=== PATIENT | male | born 1975 | race Caucasian/White ===

== ENCOUNTER 2021-11-08 07:55 | Outpatient (REF) | payer BC, SELFPAY ==
[2021-11-10 09:36] LABS: Lyme Blot 7.46 index
[2021-11-11 09:20] LABS: 18 KD (IgG) Band NON-REACTIVE; 23 KD (IgG) Band NON-REACTIVE; 23 KD (IgM) Band REACTIVE; 28 KD (IgG) Band NON-REACTIVE; 30 KD (IgG) Band NON-REACTIVE; 39 KD (IgM) Band NON-REACTIVE; 39KD (IgG) Band NON-REACTIVE; 41 KD (IgM) Band REACTIVE; 41KD (IgG) Band REACTIVE; 45 KD (IgG) Band NON-REACTIVE; 58 KD (IgG) Band NON-REACTIVE; 66 KD (IgG) Band NON-REACTIVE; 93 KD (IgG) Band NON-REACTIVE; Lyme IgG Blot Interp NEGATIVE (NEGATIVE); Lyme IgM Blot Interp POSITIVE (NEGATIVE)
[2021-11-11 09:24] LABS: Lyme Abs Screen POSITIVE
== END 2021-11-08 07:56 | disposition home or self-care (01) ==
LOC: HO.HMGCLDS 07:55
PROVIDERS: Visit Provider Internal Medicine
DX: R21 Rash and other nonspecific skin eruption (principal)
CPT/HCPCS: 36415; 86617; 86618

== ENCOUNTER 2025-02-19 07:40 | Outpatient (AMB) | payer BC, SELFPAY ==
--- NOTE | 2025-02-19 07:42 | AM.OFFWIN_ITS ---
Intake Vital Signs 02/19/25 07:44 Height 5 ft 10.5 in Weight 200 lb BMI 28.3 BP 94/64 Blood Pressure Location Lt brachial Position Sitting Respiration 16 Pulse 62 Pulse Source Pulse Oximeter Temp 97.7 F Temp Source Oral Pulse Oximetry (%) 97 Oxygen Delivery Method Room Air Intake Visit Reasons: ep tick bite Intake Note: Pt is here today c/o tick bite Rt ankle noticed this morning Allergies No Known Allergies Allergy (Verified 02/19/25 07:43) HPI HPI Comments History of Present Illness Details History - The patient is a 49-year-old male pres enting with a tick bite. - The tick bite was noticed this morning , although the patient suspects it occurred yesterday. - The patient removed the tick himself a nd brought it to the visit. - There is a history of Lyme disease, pr eviously confirmed by a positive blood test, for which the patient received a 21-day course of antibiotics. - The patient recalls a previous episode where a red bullseye rash appeared, leading to the diagnosis of Lyme disease. - The patient was hit by a baseball last Sunday, resulting in bruising above the site of the tick bite. - He states that he has redness around t he bite. - He has no joint pain, fever, chills, d ischarge, bleeding, redness, rashes, or warmth. Physical Exam General: Cooperative, healthy appearing, comfortable, no acute distress and well developed Respiratory: Normal respiratory effort and able to speak in complete sentences. Cardiac: RRR, no m/r/g noted. Skin: Small round erythematous flat open area noted on the right anterior lower leg. Dry, no discharge noted. Patient was informed and verbally consented to the use of an ambient scribe for clinic note documentation during this visit. Review of Systems Const All systems reviewed & are unremarkable except as noted in HPI and below Physical Exam Vital Signs: Last Vital Signs Temp 97.7 F 02/19/25 07:44 Pulse 62 02/19/25 07:44 Resp 16 02/19/25 07:44 BP 94/64 02/19/25 07:44 Pulse Ox 97 02/19/25 07:44 Oxygen Delivery Method Room Air 02/19/25 07:44 BMI result Body Mass Index 28.3 Assessment & Plan Assessment & Plan (1) Tick bite: Code(s): W57.XXXA - Bitten or stung by nonvenomous insect and other nonvenomous arthropods, initial encounter Qualifiers: Encounter type: initial encounter Site of tick bite: lower leg Laterality: right Qualified Code(s): S80.861A - Insect bite (nonvenomous), right lower leg, initial encounter; W57.XXXA - Bitten or stung by nonvenomous insect and other nonvenomous arthropods, initial encounter Plan Most likely a tick bite witin the last 24 hrs and removed by the pt plan - keep area clean and dry - bactroban ointment to the area TID - will order labs - Initiate doxycycline 200 mg as a single dose for prophylaxis against Lyme disease due to the recent tick bite. - Monitor for signs of infection, including joint pain, fevers, chills, and body aches. - Consider Lyme disease testing, although results may not be positive due to the short duration since the tick bite. Orders: Orders Lyme IgG/IgM w/reflex to WB Today W57.XXXA - Bitten or stung by nonvenomous insect and other nonvenomous arthropods, initial encounter Tick-borne Disease Molecular Today S30.860A - Insect bite (nonvenomous) of lower back and pelvis, initial encounter, W57.XXXA - Bitten or stung by nonvenomous insect and other nonvenomous arthropods, initial encounter Medications: New doxycycline hyclate 200 mg (2 x 100 mg) PO once 2 tabs 0RF tick bite ppx mupirocin 2% 1 appl topical TID 22 grams 0RF Coding Level of Care Code Est Pt Level 3 (31939) Diagnoses Tick bite of right lower leg, initial encounter S80.861A; W57.XXXA Encounter type: initial encounter Site of tick bite: lower leg Laterality: right
--- OUTSIDE RECORDS SUMMARY | 2025-02-19 07:43 | XMS_ITS ---
Author Name [facility] Organization Unknown Care Team Organization Name Specialty Phone Email Start Date End [facility] 03/28/2022 01/07/2024
--- OUTSIDE RECORDS SUMMARY | 2025-02-19 07:43 | XMS_ITS | Clinical Summary ---
Author Organization [facility] Address [address] [place] [id number] Phone Care Team Providers Care [employer] Name Role Phone Pcp, Unknown Primary Care Provider Unavailabl e Allergies No known active allergies Medications No known medications Active Problems No known active problems Social History Tobacco Use Types Packs/Day Years Used Date Smoking Tobacco: Never Assessed Education Answer Date Recorded Are you interested in more education? Not on viri e 01/17/2023 Are you concerned about learning? Not on file 01/17/2023 No 01/17/2023 No 01/17/2023 Digital Access Answer Date Recorded No 01/17/2023 No 01/17/2023 Reliable internet access at home? Not on file 01/17/2023 Device with a working camera? Not on file Sex and Gender Information Value Date Recorded Sex Assigned at Not on file Legal Sex Male 9:15 AM EDT Gender Identity Not on file Sexual Orientation Not on file Last Filed Vital Signs Vital Sign Reading Time Taken Comments Blood Pressure 134/88 01/31/2023 10:08 AM EDT Pulse 63 01/31/2023 10:08 AM EDT Temperature 36.6 C (97.9 F) 01/31/2023 10:08 AM EDT Respiratory Rate 16 01/31/2023 10:08 AM EDT Oxygen Saturation 99% 01/31/2023 10:08 AM EDT Inhaled Oxygen Concentration - - Weight 88.5 kg (195 lb) 01/31/2023 10:08 AM EDT Height 177.8 cm (5' 10 ) 01/31/2023 10:08 AM EDT Body Mass Index 27.98 01/31/2023 10:08 AM EDT Plan of Treatment Health Maintenance Due Date Last Done Comments Adult Td,Tdap Booster 1975 LIPID PANEL 1975 DEPRESSION SCREENING 1987 SMOKING Hx and SMOKELESS TOB ACCO SCREENING 07/25/1988 HEPATITIS C SCREENING 07/25/1993 HIV ONE-TIME SCREENING (18-6 5 YEARS) 07/25/1993 SCREENING FOR DIABETES 07/25/2010 COLOGUARD 07/25/2020 COLONOSCOPY 07/25/2020 COLORECTAL CANCER SCREENING 07/25/2020 FIT TEST 07/25/2020 FOBT 07/25/2020 SIGMOIDOSCOPY 07/25/2020 VIRTUAL COLONOSCOPY 07/25/2020 INFLUENZA VACCINE (#1) 2024 COVID-19 VACCINE (1 - 2023-2 5 season) 2025 HEPATITIS A VACCINES Aged Out No long er eligible based on patient's age to complete this topic HIB VACCINES Aged Out No longer eligi ble based on patient's age to complete this topic MENINGOCOCCAL VACCINES (ACWY) Aged Out No longer eligible based on patient's age to complete this topic MENINGOCOCCAL VACCINES (B) Aged Out N o longer eligible based on patient's age to complete this topic PNEUMOCOCCAL VACCINES (0-49 years) Aged Out No longer eligible based on patient's age to complete this topic Medical Devices Not on file Care Teams [employer] Relationship Specialty Start Date End Date Pcp, Unknown PCP - General 01/17/23 Additional Source Comments The information contained in this document represents components of the legal health record. It is not the complete legal health record.[facility]
[2025-02-19 07:44] VITALS: BP 94/64; PULSE 62; RESP 16; TEMP 36.5; O2SAT 97; BMI 28.3
== END 2025-02-19 08:07 | disposition home or self-care (01) ==
PROVIDERS: Visit Provider Physician Assistant Medical
DX: S80.861A Insect bite (nonvenomous), right lower leg, initial encounter (principal); W57.XXXA Bitten or stung by nonvenomous insect and other nonvenomous arthropods, initial encounter

== ENCOUNTER 2025-02-19 07:40 | Outpatient (REF) | payer BC, SELFPAY ==
[2025-02-20 07:09] LABS: Lyme Blot 2.06 index
[2025-02-20 22:02] LABS: A. Phagocytphilium DNA,RT-PCR NOT DETECTED (NOT DETECTED); Babesia Microti DNA, RT-PCR NOT DETECTED (NOT DETECTED); Borrelia Miyamotoi,DNA RT-PCR NOT DETECTED (NOT DETECTED); E.Chaffeensis DNA RT-PCR NOT DETECTED (NOT DETECTED); Lyme(Borrelia ssp)DNA RT-PCR NOT DETECTED (NOT DETECTED)
[2025-02-23 13:02] LABS: 39KD (IgG) Band NON-REACTIVE; 41KD (IgG) Band REACTIVE; Lyme Abs Screen POSITIVE; Lyme IgG Blot Interp NEGATIVE (NEGATIVE); Lyme IgM Blot Interp POSITIVE (NEGATIVE)
== END 2025-02-19 07:41 | disposition home or self-care (01) ==
LOC: HO.HMGCLDS 07:40
PROVIDERS: Visit Provider Physician Assistant Medical
DX: S80.861A Insect bite (nonvenomous), right lower leg, initial encounter (principal); Z01.84 Encounter for antibody response examination; W57.XXXA Bitten or stung by nonvenomous insect and other nonvenomous arthropods, initial encounter
CPT/HCPCS: 36415; 86617; 86618; 87468; 87469; 87478; 87484; 87798